=== PATIENT | male | born 1945 | race Caucasian/White ===

== ENCOUNTER 2020-01-01 22:12 | Emergency (ER) | payer OTHER, SELFPAY ==
--- NOTE | ~2020-01-01 | XR_ITS ---
XR chest 2V DATE: 01/01/2020 23:24 INDICATION: Dyspnea. Hypertension. TECHNIQUE: PA and lateral views COMPARISON: 12/13/2017 PA and lateral chest FINDINGS: There is old pulmonary granulomatous disease. No pulmonary infiltrate or consolidation, ple ural effusion or pulmonary vascular congestion or pneumothorax is detected. Normal heart size. There is aortic calcification and mild tortuosity. No hilar or mediastinal enlarge ment. Degenerative changes of the thoracic and lumbar spine. IMPRESSION: No active cardiopulmonary disease or significant change since 12/13/2017 Reviewed, dictated and finalized at location A. IMPRESSION: No active cardiopulmonary disease or significant change since 2017
--- NOTE | ~2020-01-01 | CT_ITS ---
EXAMINATION: CT brain wo con DATE: 01/01/2020 23:20 INDICATION: Headache. Hypertension. TECHNIQUE: Computed tomography (CT) of the head was performed without intravenous contrast. The mA wa s adjusted according to patient size. Iterative reconstruction technique was employed. Exam dose: 60 5.33 mGy-cm total exam DLP. COMPARISON: 10/26/[address] brain 04/18/[address] brain FINDINGS: No intracranial mass lesion or hemorrhage or cerebrovascular accident is evident. No midlin e shift or mass effect. Bilateral carotid siphon internal carotid artery calcifications. Nonspecific diminished attenuation o f the cerebral white matter, likely related to chronic small vessel ischemic changes. No subdural or epidural hematoma. No skull fracture is evident. 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 Included paranasal sinuses and mastoid air cells are normally developed and aerated. IMPRESSION: No acute intracranial finding or significant change since 10/26/2017 Reviewed, dictated and finalized at [facility]. Reviewed, dictated and finalized at location A.
[2020-01-01 22:15] VITALS: BP 205/103; PULSE 107; RESP 18; TEMP 36.8; O2SAT 98
--- NOTE | 2020-01-01 22:28 | ECG_ITS ---
Measurements Intervals [place] Rate: 101 P: 65 ME: 189 QRS: 39 QRSD: 97 T: 90 QT: 348 QTc: 451 Interpretive Statements SINUS TACHYCARDIA INCOMPLETE RIGHT BUNDLE BRANCH BLOCK BASELINE WANDER- I, II, AVR, AVL, AVF, V4-V6 ABNORMAL ECG Electronically Signed On 01-02-2020 9:31:19 CDT by Gee Elam D.O.
--- NOTE | 2020-01-01 22:54 | ED.RECABL ---
HPI - Recheck/Abnormal Lab/Rx General Chief Complaint: Recheck/Abnormal Lab/Rx Stated Complaint: High BP Time Seen by Provider: 01/01/20 22:53 Source: patient and RN notes reviewed Mode of arrival: ambulatory Limitations: no limitations History of Present Illness HPI narrative: A 74 y/o male, with a hx of HTN and HLD, presents to the ED d/t HTN beginning earlier this afternoon. He states that he ate some leroy this morning, which he typically doesn't do and around 1:30 PM his head began to feel funny, like it was going in and out . He reports that he didn't take his water pill until 5:30 PM and at that time his BP was 169/80s. He also reports that he was unsure if he took his second dose Sindy so he took that at 7:30 PM, at which time his BP was 180s/80s so he went and laid down. He notes that when he got up roughly 30 minutes later that his CP was 190s/80s, so they decided to come to the ED. He also notes some mild SOB that has resolved and some rhinorrhea. He denies any MELTON, dizziness, visual changes, CP, N/V, numbness, weakness, or difficulty ambulating. MD complaint: abnormal lab (HTN) Initial visit (ago): hour(s) (9.5) Returns today for: other (HTN) Description of abnormal result: HTN that reached 190s/80s. Symptoms since prior visit: fever (head feeling funny, like it was going in and out) Associated symptoms: shortness of breath (mild - resolved) and other (rhinorrhea and head feeling funny, like it was going in and out) Related Data Home Medications Medication Instructions Recorded Confirmed albuterol sulfate INHALATION 01/01/20 clonidine HCl 01/01/20 hydrochlorothiazide 01/01/20 pravastatin 01/01/20 Allergies Allergy/AdvReac Type Severity Reaction Status Date / Time amlodipine Allergy Unknown Unknown Verified 01/01/20 22:21 cimetidine Allergy Unknown Unknown Verified 01/01/20 22:21 indapamide Allergy Unknown Unknown Verified 01/01/20 22:21 Iodinated Contrast Media Allergy Unknown Unknown Verified 01/01/20 22:21 Penicillins Allergy Unknown Unknown Verified 01/01/20 22:21 CIMETIDINE HCL Allergy Intermediate ITCHING Uncoded 01/12/18 07:15 Contrast Media Allergy Intermediate HIVES Uncoded 01/12/18 07:15 Review of Systems Review of Systems: All systems reviewed & are unremarkable except as noted in HPI and below Eyes: Eyes: Denies change in vision ENT: Reports nasal discharge Cardiovascular: Cardiovascular: Denies chest pain and Reports other (HTN that reached 190s/80s.) Respiratory: Respiratory: Reports dyspnea (mild - resolved) Gastrointestinal: Gastrointestinal: Denies nausea and Denies vomiting Neurologic: Denies abnormal gait, Denies dizziness, Denies headache(s), Denies numbness, Denies weakness and Reports other (head feeling funny, like it was going in and out ) [facility] Past Medical History Medical History Carpal tunnel syndrome GERD (gastroesophageal reflux disease) H/O: HTN (hypertension) Hernia History of colon cancer HLD (hyperlipidemia) Hx of cataract Surgical History Surgical History H/O hernia repair History of carpal tunnel surgery History of colonoscopy History of esophagogastroduodenoscopy (EGD) Hx of cardiac cath S/P colon resection Family History Family History Mother Hypertension Patient's mother is , Onset Age: 99 Father Patient's father is , Onset Age: 74 Social History Social History Smoking status: Never smoker Second hand tobacco smoke exposure: No Alcohol intake: never Gender identity (if verbalized by the patient): Male Exam Const: General: cooperative, no acute distress and alert Nutritional Appearance: obese (mildly) Orientation/consciousness: patient oriented x3 Limitations: no limitations HENMT: Ears: other (hard of hearing)
[2020-01-01 23:40] LABS: Basophils Percent Auto 0.1 % (0.2-1.2); Eosinophils Absolute Auto 0.1 K/mm3 (0-0.3); Eosinophils Percent Auto 0.8 % (0-4.4); Hematocrit 40.6 % (42.0-52.0); Hemoglobin 13.2 g/dL (14.0-18.0); Immature Granulocyte Absolute 0.02 K/mm3 (0.00-0.031); Immature Granulocyte Percent A 0.3 % (0-0.5); Lymphocytes Absolute Auto 1.34 K/mm3 (0.9-3.2); Lymphocytes Percent Auto 17.6 % (18.3-44.2); Mean Corpuscular HGB Conc 32.5 g/dl (32-36); Mean Corpuscular Hemoglobin 31.1 pg (26-34); Mean Corpuscular Volume 95.5 fl (80-100); Mean Platelet Volume 9.6 fl (7.4-10.4); Monocytes Absolute Auto 0.4 K/mm3 (0.1-0.6); Monocytes Percent Auto 5.5 % (2.6-8.5); Neutrophils Absolute Auto 5.8 K/mm3 (1.3-6.7); Neutrophils Percent Auto 75.7 % (45.5-73.1); Platelet Count Result 237 k/mm3 (150-375); Red Blood Count 4.25 M/mm3 (4.6-6.20); White Blood Count 7.6 K/mm3 (4.5-10.0)
--- NOTE | 2020-01-01 23:44 | PC.NURSE ---
Patient aware of need for urine sample. Refusing cath at this time.
[2020-01-01 23:49] LABS: Alanine Aminotransferase 21 U/L (4-50); Albumin Level 4.3 g/dL (3.5-5.1); Alkaline Phosphatase 98 U/L (38-126); Aspartate Amino Transferase 27 U/L (17-59); Bilirubin,Total 0.5 mg/dL (0.2-1.3); Blood Urea Nitrogen 17 mg/dL (9-20); Calcium 9.9 mg/dL (8.4-10.2); Carbon Dioxide 27 mmol/L (22-30); Chloride 104 mmol/L (98-107); Estimated Glomerular Filt Rate 59; Glucose 115 mg/dL (75-110); INR 0.9; Potassium 3.8 mmol/L (3.4-5.0); Prothrombin Time 11.6 Seconds (11.1-14.7); Sodium 137 mmol/L (137-145)
[2020-01-01 23:50] VITALS: BP 156/70; PULSE 76; RESP 18; O2SAT 100
[2020-01-01 23:50] LABS: Partial Thromboplastin Time 33.6 SECONDS (22.3-36.8)
--- NOTE | 2020-01-01 23:56 | PC.NURSE ---
Patient was taken to xray, reports he urinated in radiology and they did not save his urine.
[2020-01-01 23:58] LABS: NT Pro B Type Natriuretic Pept 35 PG/ML (5-100)
[2020-01-02 00:01] LABS: Troponin I < 0.012 ng/mL (0.000-0.034)
[2020-01-02 00:55] VITALS: BP 151/67; PULSE 74; RESP 17; O2SAT 100
[2020-01-02 01:14] LABS: Add Urine Microscopic? NO; Appearance Urine Clear (Clear); Bilirubin Urine Negative (Negative); Blood Urine Negative (Negative); Color Urine Straw (Yellow); Glucose Urine UA Negative (Negative); Ketones Urine Negative (Negative); Leukocyte Esterase Ur Negative LEU/UL (Negative); Mucus Urine Rare /lpf; Nitrate Urine Negative (Negative); Protein Urine Negative (Negative); Specific Grav Ur 1.013 (1.001-1.035); Urobilinogen Urine Negative mg/dL (<2.0); WBC Urine 0-3 /hpf
[2020-01-02 02:13] VITALS: BP 154/76; PULSE 76; RESP 17; O2SAT 98
== END 2020-01-02 02:14 | disposition home or self-care (01) ==
PROVIDERS: Emergency Provider Emergency Medicine; PCP Emergency Medicine
DX: R42 Dizziness and giddiness (principal); I10 Essential (primary) hypertension; K21.9 Gastro-esophageal reflux disease without esophagitis; E78.5 Hyperlipidemia, unspecified; Z85.038 Personal history of other malignant neoplasm of large intestine; Z90.49 Acquired absence of other specified parts of digestive tract; R00.0 Tachycardia, unspecified; I45.10 Unspecified right bundle-branch block; R06.02 Shortness of breath
CPT/HCPCS: 36415; 70450; 71046; 80053; 81003; 83880; 84484; 85025; 85610; 85730; 93005; 99284

== ENCOUNTER → 2020-09-20 10:49 | Outpatient (CLI) | payer OTHER, SELFPAY ==
--- NOTE | ~2020-09-20 | XR_ITS ---
XR shoulder RT min 2V, XR shoulder LT min 2V 09/20/2020 11:16 Indication: Bilateral shoulder pain Procedure: 4 views each shoulder Comparison: No prior studies for comparison. Findings: There is mild degenerative change of the acromioclavicular joints. There is a loose body ad jacent to the left acromioclavicular joint. No fracture, subluxation or dislocation. No significant s oft tissue abnormality. No radiopaque foreign bodies. Calcified granuloma is present in the lung pare nchyma. Impression: 1: Mild osteoarthritis of the acromioclavicular joints. Reviewed, dictated and finalized at location [facility]. [employer] Impression: 1: Mild osteoarthritis of the acromioclavicular joints. Impression: 1: Mild osteoarthritis of the acromioclavicular joints.
== END ==
PROVIDERS: Visit Provider Emergency Medicine
DX: M19.011 Primary osteoarthritis, right shoulder (principal); M19.012 Primary osteoarthritis, left shoulder
CPT/HCPCS: 73030

== ENCOUNTER 2022-01-07 02:13 | Day surgery (SDC) | payer MEDICARE, SELFPAY ==
[2021-12-27 13:19] VITALS: BMI 27.1
--- NOTE | 2022-01-05 12:20 | WPDANESEPPF ---
Anes - Initial Pre Proc Eval Procedure: Operation Date: 01/07/22 08:30 Proposed Procedures p Screening Colonoscopy - Ren Stubbs MD Date/Time: 01/05/22 12:20 Surgeon: Ren Stubbs MD Pre Op Diagnosis: hx of colon polyps Patient Data Age: 76 Gender: M Height: 1.83 m Weight: 90.9 kg Allergies Allergy/AdvReac Type Severity Reaction Status Date / Time cimetidine [From Tagamet] Allergy Severe Rash Verified 01/07/22 07:39 indapamide [From Lozol] Allergy Severe Swelling Verified 01/07/22 07:39 Iodinated Contrast Media Allergy Severe Rash Verified 01/07/22 07:39 Penicillins Allergy Severe Fainting Verified 01/07/22 07:39 Home Medications Medication Instructions Recorded Confirmed Type albuterol sulfate 90 mcg/actuation 1 - 2 puff INHALATION Q4-6H PRN g 01/08/21 12/27/21 History aerosol inhaler dorzolamide 2 % eye drops 1 drp EACH EYE BID 01/08/21 12/27/21 History pravastatin 80 mg tablet 80 mg PO DAILY #90 tablet 11/21/21 12/27/21 Rx clonidine HCl 0.3 mg tablet 0.3 mg PO DAILY #180 tablet 12/03/21 12/27/21 Rx hydrochlorothiazide 12.5 mg tablet 12.5 mg PO DAILY #90 tablet 12/03/21 12/27/21 Rx cholecalciferol (vitamin D3) 1,250 1,250 mcg PO .COMPLEX #7 cap 12/11/21 12/27/21 Rx mcg (50,000 unit) capsule Patient hx anesthesia problems: none Family hx anesthesia problems: none Results Review: All pre-operative results and documents have been reviewed as part of the pre-operative evaluation. [facility] Past Medical History Medical History (Updated 01/05/22 @ 12:20 by Boston Kimbrough DO) Carpal tunnel syndrome GERD (gastroesophageal reflux disease) Glaucoma H/O: HTN (hypertension) Hernia History of colon cancer HLD (hyperlipidemia) Hx of cataract Surgical History Surgical History H/O hernia repair History of carpal tunnel surgery History of colonoscopy History of esophagogastroduodenoscopy (EGD) Hx of cardiac cath S/P colon resection Family History Family History Mother Hypertension Patient's mother is , Onset Age: 99 Father Patient's father is , Onset Age: 74 Cancer Sibling Cancer Heart problem Daughter Breast cancer Social History Social History Smoking status: Never smoker Second hand tobacco smoke exposure: No Alcohol intake: never Substance use: never Substance use type: does not use Living arrangements: with family Gender identity (if verbalized by the patient): Male Sexual Orientation (if Verbalized by the Patient): Straight or Heterosexual Spiritual care concerns: No Anes - Eval Final PreProcedure Day of Procedure 01/05/22 12:20 Patient weight: overweight Heart: regular rate and rhythm Lungs: clear to auscultation and normal air movement Airway: Mallampati scale class II Neurological: alert and oriented Last oral intake: >/= 8 hours ASA classification: II Emergent: no Anesthetic plan: proceed Anesthesia type and monitoring: general GIVS and standard monitoring Results Review: All pre-operative results and documents have been reviewed as part of the pre-operative evaluation. Informed Consent: The patient's anesthetic plan and its attendant risks and benefits were discussed with the patient/family/POA. Questions were solicited and answers provided to the satisfaction of the patient/family/POA.
[2022-01-07 07:41] VITALS: BP 166/84; PULSE 78; RESP 18; TEMP 36.6; O2SAT 100
[2022-01-07] MEDS: LACTATED RINGERS 1,000 ML 150 ML IV CONT (07:51)
--- NOTE | 2022-01-07 07:58 | PM.HPGS ---
History of Present Illness History of Present Illness Consent: Risks, benefits, and alternatives have been discussed and questions answered. Patient agrees to proceed with procedure. Chief complaint: hx of colon polyps Narrative: Hipolito Land is a 76 year old male referred for colon cancer screening. He has a history of polyps. Review of Systems Review of Systems: All systems reviewed & are unremarkable except as noted in HPI and below PMFSH Past Medical History Medical History Carpal tunnel syndrome GERD (gastroesophageal reflux disease) Glaucoma H/O: HTN (hypertension) Hernia History of colon cancer HLD (hyperlipidemia) Hx of cataract Surgical History Surgical History H/O hernia repair History of carpal tunnel surgery History of colonoscopy History of esophagogastroduodenoscopy (EGD) Hx of cardiac cath S/P colon resection Family History Family History Mother Hypertension Patient's mother is , Onset Age: 99 Father Patient's father is , Onset Age: 74 Cancer Sibling Cancer Heart problem Daughter Breast cancer Social History Social History Smoking status: Never smoker Second hand tobacco smoke exposure: No Alcohol intake: never Substance use: never Substance use type: does not use Living arrangements: with family Gender identity (if verbalized by the patient): Male Sexual Orientation (if Verbalized by the Patient): Straight or Heterosexual Spiritual care concerns: No Meds Home Medications and Allergies Home Medications Medication Instructions Recorded Confirmed Type albuterol sulfate 90 mcg/actuation 1 - 2 puff INHALATION Q4-6H PRN g 01/08/21 01/07/22 History aerosol inhaler dorzolamide 2 % eye drops 1 drp EACH EYE BID 01/08/21 12/27/21 History pravastatin 80 mg tablet 80 mg PO DAILY #90 tablet 11/21/21 12/27/21 Rx clonidine HCl 0.3 mg tablet 0.3 mg PO DAILY #180 tablet 12/03/21 12/27/21 Rx hydrochlorothiazide 12.5 mg tablet 12.5 mg PO DAILY #90 tablet 02/14/22 03/10/22 Rx cholecalciferol (vitamin D3) 1,250 1,250 mcg PO .COMPLEX #7 cap 12/11/21 12/27/21 Rx mcg (50,000 unit) capsule Allergies Allergy/AdvReac Type Severity Reaction Status Date / Time cimetidine [From Tagamet] Allergy Severe Rash Verified 01/07/22 07:39 indapamide [From Lozol] Allergy Severe Swelling Verified 01/07/22 07:39 Iodinated Contrast Media Allergy Severe Rash Verified 01/07/22 07:39 Penicillins Allergy Severe Fainting Verified 01/07/22 07:39 Vital Signs Vital Signs - 24 hr 01/07/22 07:41 Temperature 36.6 C Pulse Rate 78 Respiratory Rate 18 Blood Pressure 166/84 H Pulse Oximetry 100 Exam Resp: Auscultation: clear to auscultation bilaterally Cardio: Rate: regular rate Rhythm: regular rhythm GI: GI Palp: Yes Soft to palpation and No Tenderness to palpation present (GI) Assessment and Plan Assessment and plan (1) Screening for colon cancer: Code(s): Z12.11 - Encounter for screening for malignant neoplasm of colon Status: Acute Assessment and Plan: Colonoscopy with possible biopsy or polypectomy or cautery or injection of substances.
[2022-01-07 08:51] VITALS: BP 91/52; PULSE 65; RESP 18; O2SAT 100
[2022-01-07 09:01] VITALS: BP 126/65; PULSE 62; RESP 18; O2SAT 100
[2022-01-07 09:10] VITALS: BP 135/71; PULSE 63; RESP 18; O2SAT 100
== END 2022-01-07 09:20 | disposition home or self-care (01) ==
PROVIDERS: PCP Internal Medicine; Visit Provider Internal Medicine Gastroenterology
PROC: 0DJD8ZZ Inspection of Lower Intestinal Tract, Via Natural or Artificial Opening Endoscopic (ICD-10-PCS; CPT 45378; principal; 2022-01-07 08:30)
DX: Z12.11 Encounter for screening for malignant neoplasm of colon (principal); D12.2 Benign neoplasm of ascending colon; K64.8 Other hemorrhoids; Z98.0 Intestinal bypass and anastomosis status; Z90.49 Acquired absence of other specified parts of digestive tract; Z85.038 Personal history of other malignant neoplasm of large intestine; I10 Essential (primary) hypertension; E78.5 Hyperlipidemia, unspecified; K21.9 Gastro-esophageal reflux disease without esophagitis; H40.9 Unspecified glaucoma; Z79.51 Long term (current) use of inhaled steroids
CPT/HCPCS: 45385; 88305; J2704; J7120

== ENCOUNTER 2022-05-03 08:22 | Outpatient (CLI) | payer MEDICARE, SELFPAY ==
--- NOTE | ~2022-05-03 | US_ITS ---
EXAMINATION: US arterial ankle brachial ind DATE: 05/03/2022 09:41 INDICATION: Other specified symptoms and signs involving the circulatory system. Cold toes. Hypertens ion and hypercholesterolemia. TECHNIQUE: Segmental pressures and plethysmographic and Doppler waveforms of the brachial and lower e xtremity arteries were obtained. COMPARISON: None. FINDINGS: Right and left brachial artery pressures of 170 mm Hg and 176 mm Hg, respectively, are concordant (no rmal difference <= 30 mmHg). The right ankle-brachial index (KRISTINE) is 0.79 (normal >= 0.9-1.0). The right great toe-brachial index (TBI) is 0.53 (normal >= 0.65). Arterial Doppler waveforms are biphasic with brisk systolic upstrokes at both right posterior tibial and dorsalis pedis arteries. The left KRISTINE is 0.55. The left TBI is 0.37. Arterial Doppler waveforms are biphasic with brisk systol ic upstrokes at both left posterior tibial and dorsalis pedis arteries. IMPRESSION: 1. Bilateral arterial occlusive disease with mildly decreased right and moderately decreased left KRISTINE s and TBIs. Reviewed, dictated and finalized at location B. IMPRESSION: 1. Bilateral arterial occlusive disease with mildly decreased right and moderat hal decreased left ABIs and TBIs.
== END 2022-05-03 08:23 | disposition home or self-care (01) ==
PROVIDERS: PCP Internal Medicine; Visit Provider Nurse Practitioner
DX: R09.89 Other specified symptoms and signs involving the circulatory and respiratory systems (principal); I70.90 Unspecified atherosclerosis
CPT/HCPCS: 93922